=== PATIENT | female | born 1950 | race Caucasian/White ===

== ENCOUNTER 2020-10-24 22:36 | Inpatient (IN) | payer MEDICARE, OTHER ==
[~2020-10-24] VITALS: Ht 165.1 cm; Wt 70.3 kg
[2020-10-24 23:06] LABS: BASOPHILS % (AUTO) 0.6 % (0.0-2.0); EOSINOPHILS # (AUTO) 0.1 K/uL (0.0-0.7); EOSINOPHILS % (AUTO) 1.6 % (0.0-7.0); HEMATOCRIT 38.6 % (31.2-41.9); HEMOGLOBIN 13.3 g/dL (10.9-14.3); LYMPHOCYTES # (AUTO) 1.3 K/uL (20.0-40.0); LYMPHOCYTES % (AUTO) 22.8 % (20.5-51.5); MEAN CORPUSCULAR HEMOGLOBIN 32.4 uug (24.7-32.8); MEAN CORPUSCULAR HGB CONC 35 g/dL (32.3-35.6); MONOCYTES # (AUTO) 0.4 K/uL (2.0-10.0); MONOCYTES % (AUTO) 6.2 % (0.0-11.0); NEUTROPHILS # (AUTO) 3.9 K/uL (1.8-8.9); NEUTROPHILS % (AUTO) 68.8 % (38.5-71.5); PLATELET COUNT (AUTO) 219 K/uL (179-408); WHITE BLOOD COUNT (AUTO) 5.7 K/uL (3.8-11.8)
[2020-10-24 23:21] LABS: ALANINE AMINOTRANSFERASE 27 U/L (14-59); ALKALINE PHOSPHATASE 79 U/L (50-136); ASPARTATE AMINOTRANSFERASE 12 U/L (15-37); BILIRUBIN,DIRECT 0.1 mg/dL (0.0-0.2); BILIRUBIN,TOTAL 0.3 mg/dL (0.2-1.0); CARBON DIOXIDE 28 mmol/L (21-32); CHLORIDE 103 mmol/L (98-107); CREATININE 0.8 mg/dL (0.6-1.3); GLUCOSE 135 mg/dL (74-106); POTASSIUM 3.8 mmol/L (3.5-5.1); TOTAL PROTEIN, SERUM 6.5 g/dL (6.4-8.2); UREA NITROGEN, BLOOD 13 mg/dL (7-18)
[2020-10-24 23:22] LABS: ACETAMINOPHEN < 2.0 ug/mL (10-30)
[2020-10-24 23:23] LABS: ETHANOL < 3 MG/DL (0-0)
[2020-10-24 23:27] LABS: THYROID STIMULATING HORMONE 1.482 mIU/mL (0.358-3.740)
[2020-10-25] MEDS ORDERED: DOXY100C2 PO (00:51)
[2020-10-25] MEDS ORDERED: MELA3TAB41 PO (00:51)
[2020-10-25] MEDS ORDERED: FERR325T28 PO (00:51)
[2020-10-25] MEDS ORDERED: BACL10TA PO (00:51)
[2020-10-25] MEDS ORDERED: ATOR80TA PO (00:51)
[2020-10-25] MEDS ORDERED: OXYC-128 PO (00:51)
[2020-10-25] MEDS ORDERED: ROBITUSSIN PO (00:51)
[2020-10-25] MEDS ORDERED: DIPH25CA83 PO (00:51)
[2020-10-25] MEDS ORDERED: GABA600T12 PO (00:51)
[2020-10-25] MEDS ORDERED: ACET-73 PO (00:51)
[2020-10-25] MEDS ORDERED: FAMO20TA8 PO (00:51)
[2020-10-25] MEDS ORDERED: DIAZ10TA4 PO (00:51)
[2020-10-25] MEDS ORDERED: ASPI81TA31 PO (00:51)
[2020-10-25] MEDS ORDERED: MIRA25TA PO (00:51)
[2020-10-25] MEDS ORDERED: LIDO30AD10 TD (00:51)
[2020-10-25] MEDS ORDERED: NALO4SPR NS (00:51)
[2020-10-25] MEDS ORDERED: NA P133E RC (00:51)
[2020-10-25] MEDS ORDERED: DEXT15DR6 OP (00:51)
[2020-10-25] MEDS ORDERED: TEMA30CA5 PO (00:51)
[2020-10-25] MEDS ORDERED: SUMA50TA PO (00:51)
[2020-10-25] MEDS ORDERED: BUPR8TAB4 SL (00:51)
[2020-10-25] MEDS ORDERED: MAGN400O6 PO (00:51)
[2020-10-25] MEDS ORDERED: MULT-619 PO (00:51)
[2020-10-25] MEDS ORDERED: ALBU8.5H8 IH (00:51)
[2020-10-25] MEDS ORDERED: BISA10SU61 RC (00:51)
[2020-10-25] MEDS ORDERED: BLOOD SUGAR DIAGNOSTIC 1 EACH STRIP VI ONE (02:30)
[2020-10-25] MEDS ORDERED: MAG HYDROX/AL HYDROX/SIMETH 30 ML LIQUID UDC PO PRN (02:30)
[2020-10-25] MEDS ORDERED: MAGNESIUM HYDROXIDE 30 ML LIQUID UDC PO PRN (02:30)
[2020-10-25 02:39] VITALS: BP 116/77
[2020-10-25 07:30] VITALS: BP 96/48
[2020-10-25] MEDS ORDERED: BISACODYL 10 MG SUPP.RECT RC PRN (15:00)
[2020-10-25] MEDS: DULOXETINE 30 MG CAPSULE.DR PO SCH (15:00)
[2020-10-25] MEDS ORDERED: OXYCODONE/APAP 5-325 MG TABLET PO PRN (15:00)
[2020-10-25] MEDS: DIVALPROEX SPRINKLE 125 MG CAP.SPRINK PO SCH ×2 (15:00→20:08)
[2020-10-25] MEDS ORDERED: ALBUTEROL SULFATE 1.25 MG/3 ML NEBU IH PRN (15:00)
[2020-10-25] MEDS ORDERED: POLYVINYL ALCOHOL OPHT DROPS 15 ML BOTTLE EACHEYE PRN (15:00)
[2020-10-25] MEDS ORDERED: SUMATRIPTAN SUCCINATE 50 MG TABLET PO PRN (15:00)
[2020-10-25] MEDS: ARIPIPRAZOLE 2 MG TABLET PO SCH (15:00)
[2020-10-25 16:43] VITALS: BP 99/55
[2020-10-25] MEDS ORDERED: BUPRENORPHINE HCL 8 MG TAB.SUBL SL SCH (17:00)
[2020-10-25] MEDS: FAMOTIDINE 20 MG TABLET PO SCH (17:00)
[2020-10-25] MEDS: BACLOFEN 10 MG TABLET PO SCH ×2 (17:00→20:08)
[2020-10-25] MEDS ORDERED: Medication Not On Formulary EA (Gabapentin 600 MG) PO SCH (17:00)
[2020-10-25] MEDS: ATORVASTATIN 40 MG TABLET PO SCH (20:08)
[2020-10-25] MEDS: GABAPENTIN 300 MG CAPSULE PO SCH (20:08)
[2020-10-26 07:30] VITALS: BP 101/49
[2020-10-26] MEDS: ASPIRIN 81 MG TAB.CHEW PO SCH (08:50)
[2020-10-26] MEDS: DULOXETINE 30 MG CAPSULE.DR PO SCH (08:50)
[2020-10-26] MEDS: DIVALPROEX SPRINKLE 125 MG CAP.SPRINK PO SCH ×2 (08:51→20:53)
[2020-10-26] MEDS: BACLOFEN 10 MG TABLET PO SCH ×4 (08:51→20:53)
[2020-10-26] MEDS: FAMOTIDINE 20 MG TABLET PO SCH ×2 (08:51→17:34)
[2020-10-26] MEDS: FERROUS SULFATE 325 MG TABEC PO SCH (08:51)
[2020-10-26] MEDS: MULTIVITAMINS,THERAPEUTIC TABLET PO SCH (08:51)
[2020-10-26] MEDS: GABAPENTIN 300 MG CAPSULE PO SCH ×4 (08:51→20:52)
[2020-10-26] MEDS: LIDOCAINE 5% PATCH TD SCH (08:51)
[2020-10-26] MEDS: ARIPIPRAZOLE 2 MG TABLET PO SCH (08:51)
[2020-10-26 16:00] VITALS: BP 110/58
[2020-10-26] MEDS: OXYCODONE/APAP 5-325 MG TABLET PO PRN (20:52)
[2020-10-26] MEDS: ATORVASTATIN 40 MG TABLET PO SCH (20:53)
[2020-10-26] MEDS: NYSTATIN CREAM 30 GM TUBE TOP SCH (20:54)
[2020-10-27 07:30] VITALS: BP 130/72
[2020-10-27] MEDS: LIDOCAINE 5% PATCH TD SCH (10:58)
[2020-10-27] MEDS: ASPIRIN 81 MG TAB.CHEW PO SCH (10:58)
[2020-10-27] MEDS: ARIPIPRAZOLE 2 MG TABLET PO SCH (10:58)
[2020-10-27] MEDS: DULOXETINE 30 MG CAPSULE.DR PO SCH (10:59)
[2020-10-27] MEDS: DIVALPROEX SPRINKLE 125 MG CAP.SPRINK PO SCH ×2 (10:59→20:16)
[2020-10-27] MEDS: BACLOFEN 10 MG TABLET PO SCH ×4 (11:00→20:16)
[2020-10-27] MEDS: FERROUS SULFATE 325 MG TABEC PO SCH (11:00)
[2020-10-27] MEDS: GABAPENTIN 300 MG CAPSULE PO SCH ×4 (11:01→20:16)
[2020-10-27] MEDS: MULTIVITAMINS,THERAPEUTIC TABLET PO SCH (11:01)
[2020-10-27] MEDS: FAMOTIDINE 20 MG TABLET PO SCH ×2 (11:01→16:27)
[2020-10-27] MEDS: NYSTATIN CREAM 30 GM TUBE TOP SCH ×2 (11:02→20:17)
[2020-10-27 16:00] VITALS: BP 105/58
[2020-10-27 20:06] VITALS: BP 122/68
[2020-10-27] MEDS: ATORVASTATIN 40 MG TABLET PO SCH (20:16)
[2020-10-28 07:30] VITALS: BP 121/58
[2020-10-28] MEDS: FERROUS SULFATE 325 MG TABEC PO SCH (08:42)
[2020-10-28] MEDS: GABAPENTIN 300 MG CAPSULE PO SCH ×4 (08:42→20:38)
[2020-10-28] MEDS: BACLOFEN 10 MG TABLET PO SCH ×4 (08:42→20:38)
[2020-10-28] MEDS: MULTIVITAMINS,THERAPEUTIC TABLET PO SCH (08:42)
[2020-10-28] MEDS: FAMOTIDINE 20 MG TABLET PO SCH ×2 (08:42→16:22)
[2020-10-28] MEDS: ARIPIPRAZOLE 2 MG TABLET PO SCH (08:42)
[2020-10-28] MEDS: DIVALPROEX SPRINKLE 125 MG CAP.SPRINK PO SCH ×2 (08:42→20:38)
[2020-10-28] MEDS: DULOXETINE 30 MG CAPSULE.DR PO SCH (08:42)
[2020-10-28] MEDS: ASPIRIN 81 MG TAB.CHEW PO SCH (08:42)
[2020-10-28] MEDS: NYSTATIN CREAM 30 GM TUBE TOP SCH ×2 (08:43→20:45)
[2020-10-28] MEDS: LIDOCAINE 5% PATCH TD SCH (08:43)
[2020-10-28 15:57] VITALS: BP 107/55
[2020-10-28] MEDS: BENZOCAINE/MENTH/CETYLPYRD LOZENGE MM PRN (16:35)
[2020-10-28] MEDS: ENSURE ENLIVE (VAN) 240 ML LIQUID PO SCH (17:25)
[2020-10-28 19:45] VITALS: BP 127/87
[2020-10-28] MEDS: ATORVASTATIN 40 MG TABLET PO SCH (20:38)
[2020-10-28] MEDS: TEMAZEPAM 7.5 MG CAPSULE PO PRN (22:00)
[2020-10-29 07:30] VITALS: BP 98/46
[2020-10-29] MEDS: ARIPIPRAZOLE 5 MG TABLET PO SCH (09:09)
[2020-10-29] MEDS: MULTIVITAMINS,THERAPEUTIC TABLET PO SCH (09:09)
[2020-10-29] MEDS: ASPIRIN 81 MG TAB.CHEW PO SCH (09:09)
[2020-10-29] MEDS: BACLOFEN 10 MG TABLET PO SCH ×4 (09:09→20:19)
[2020-10-29] MEDS: FERROUS SULFATE 325 MG TABEC PO SCH (09:10)
[2020-10-29] MEDS: FAMOTIDINE 20 MG TABLET PO SCH ×2 (09:10→17:02)
[2020-10-29] MEDS: DULOXETINE 30 MG CAPSULE.DR PO SCH (09:10)
[2020-10-29] MEDS: ENSURE ENLIVE (VAN) 240 ML LIQUID PO SCH ×2 (09:10→17:03)
[2020-10-29] MEDS: GABAPENTIN 300 MG CAPSULE PO SCH ×4 (09:10→20:18)
[2020-10-29] MEDS: DIVALPROEX SPRINKLE 125 MG CAP.SPRINK PO SCH ×2 (09:10→20:18)
[2020-10-29] MEDS: NYSTATIN CREAM 30 GM TUBE TOP SCH ×2 (09:11→20:19)
[2020-10-29] MEDS: LIDOCAINE 5% PATCH TD SCH (09:11)
[2020-10-29 15:29] VITALS: BP 92/44
[2020-10-29 20:12] VITALS: BP 126/56
[2020-10-29] MEDS: ATORVASTATIN 40 MG TABLET PO SCH (20:18)
[2020-10-29] MEDS: OXYCODONE/APAP 5-325 MG TABLET PO PRN (22:08)
[2020-10-29] MEDS: TEMAZEPAM 7.5 MG CAPSULE PO PRN (23:17)
[2020-10-30 07:30] VITALS: BP 120/76
[2020-10-30] MEDS: ARIPIPRAZOLE 5 MG TABLET PO SCH (08:59)
[2020-10-30] MEDS: FERROUS SULFATE 325 MG TABEC PO SCH (08:59)
[2020-10-30] MEDS: FAMOTIDINE 20 MG TABLET PO SCH ×2 (08:59→16:57)
[2020-10-30] MEDS: ASPIRIN 81 MG TAB.CHEW PO SCH (09:00)
[2020-10-30] MEDS: GABAPENTIN 300 MG CAPSULE PO SCH ×4 (09:00→20:54)
[2020-10-30] MEDS: DULOXETINE 30 MG CAPSULE.DR PO SCH (09:00)
[2020-10-30] MEDS: DIVALPROEX SPRINKLE 125 MG CAP.SPRINK PO SCH ×2 (09:00→20:54)
[2020-10-30] MEDS: BACLOFEN 10 MG TABLET PO SCH ×4 (09:00→20:54)
[2020-10-30] MEDS: MULTIVITAMINS,THERAPEUTIC TABLET PO SCH (09:00)
[2020-10-30] MEDS: LIDOCAINE 5% PATCH TD SCH (09:01)
[2020-10-30] MEDS: ENSURE ENLIVE (VAN) 240 ML LIQUID PO SCH ×2 (09:01→17:56)
[2020-10-30] MEDS: NYSTATIN CREAM 30 GM TUBE TOP SCH ×2 (09:03→20:54)
[2020-10-30] MEDS: CLONAZEPAM 0.5 MG TABLET PO PRN (12:17)
[2020-10-30 16:00] VITALS: BP 99/42
[2020-10-30] MEDS: OXYCODONE/APAP 5-325 MG TABLET PO PRN (18:03)
[2020-10-30 18:19] VITALS: BP 107/62
[2020-10-30 20:34] VITALS: BP 100/61
[2020-10-30] MEDS: BENZOCAINE/MENTH/CETYLPYRD LOZENGE MM PRN (20:53)
[2020-10-30] MEDS: ATORVASTATIN 40 MG TABLET PO SCH (20:54)
[2020-10-30] MEDS: TEMAZEPAM 7.5 MG CAPSULE PO PRN (22:42)
[2020-10-31 07:30] VITALS: BP 121/50
[2020-10-31] MEDS: ASPIRIN 81 MG TAB.CHEW PO SCH (08:15)
[2020-10-31] MEDS: GABAPENTIN 300 MG CAPSULE PO SCH ×4 (08:15→20:52)
[2020-10-31] MEDS: ARIPIPRAZOLE 5 MG TABLET PO SCH (08:15)
[2020-10-31] MEDS: FAMOTIDINE 20 MG TABLET PO SCH ×2 (08:15→17:19)
[2020-10-31] MEDS: MULTIVITAMINS,THERAPEUTIC TABLET PO SCH (08:15)
[2020-10-31] MEDS: DIVALPROEX SPRINKLE 125 MG CAP.SPRINK PO SCH ×2 (08:15→20:52)
[2020-10-31] MEDS: FERROUS SULFATE 325 MG TABEC PO SCH (08:15)
[2020-10-31] MEDS: BACLOFEN 10 MG TABLET PO SCH ×4 (08:15→20:52)
[2020-10-31] MEDS: DULOXETINE 30 MG CAPSULE.DR PO SCH (08:15)
[2020-10-31] MEDS: NYSTATIN CREAM 30 GM TUBE TOP SCH ×2 (08:16→20:53)
[2020-10-31] MEDS: LIDOCAINE 5% PATCH TD SCH (08:16)
[2020-10-31] MEDS: ENSURE ENLIVE (VAN) 240 ML LIQUID PO SCH ×2 (08:17→17:20)
[2020-10-31 16:33] VITALS: BP 118/53
[2020-10-31 20:14] VITALS: BP 114/51
[2020-10-31] MEDS: ATORVASTATIN 40 MG TABLET PO SCH (20:52)
[2020-10-31] MEDS: OXYCODONE/APAP 5-325 MG TABLET PO PRN (21:01)
[2020-10-31] MEDS: TEMAZEPAM 7.5 MG CAPSULE PO PRN (23:11)
[2020-11-01 07:30] VITALS: BP 105/52
[2020-11-01] MEDS: ASPIRIN 81 MG TAB.CHEW PO SCH (08:54)
[2020-11-01] MEDS: MULTIVITAMINS,THERAPEUTIC TABLET PO SCH (08:54)
[2020-11-01] MEDS: FERROUS SULFATE 325 MG TABEC PO SCH (08:54)
[2020-11-01] MEDS: FAMOTIDINE 20 MG TABLET PO SCH ×2 (08:54→16:20)
[2020-11-01] MEDS: GABAPENTIN 300 MG CAPSULE PO SCH ×4 (08:54→20:28)
[2020-11-01] MEDS: DIVALPROEX SPRINKLE 125 MG CAP.SPRINK PO SCH ×2 (08:55→20:28)
[2020-11-01] MEDS: BACLOFEN 10 MG TABLET PO SCH ×4 (08:55→20:28)
[2020-11-01] MEDS: DULOXETINE 30 MG CAPSULE.DR PO SCH (08:55)
[2020-11-01] MEDS: ARIPIPRAZOLE 5 MG TABLET PO SCH ×2 (08:55→16:20)
[2020-11-01] MEDS: LIDOCAINE 5% PATCH TD SCH (08:56)
[2020-11-01] MEDS: ENSURE ENLIVE (VAN) 240 ML LIQUID PO SCH ×2 (08:56→16:21)
[2020-11-01] MEDS: NYSTATIN CREAM 30 GM TUBE TOP SCH ×2 (08:56→20:56)
[2020-11-01] MEDS: ACETAMINOPHEN 325 MG TABLET PO PRN (11:47)
[2020-11-01] MEDS: CLONAZEPAM 0.5 MG TABLET PO SCH ×2 (14:35→16:20)
[2020-11-01 16:19] VITALS: BP 116/55
[2020-11-01 20:22] VITALS: BP 133/79
[2020-11-01] MEDS: ATORVASTATIN 40 MG TABLET PO SCH (20:28)
[2020-11-01] MEDS: OXYCODONE/APAP 5-325 MG TABLET PO PRN (20:56)
[2020-11-01] MEDS: CLONAZEPAM 0.5 MG TABLET PO PRN (23:21)
[2020-11-02] MEDS: TEMAZEPAM 7.5 MG CAPSULE PO PRN (01:40)
[2020-11-02 07:30] VITALS: BP 97/52
[2020-11-02] MEDS: OXYCODONE/APAP 5-325 MG TABLET PO PRN ×2 (08:27→21:24)
[2020-11-02] MEDS: FAMOTIDINE 20 MG TABLET PO SCH ×2 (08:38→16:27)
[2020-11-02] MEDS: GABAPENTIN 300 MG CAPSULE PO SCH ×4 (08:38→20:37)
[2020-11-02] MEDS: ASPIRIN 81 MG TAB.CHEW PO SCH (08:38)
[2020-11-02] MEDS: BACLOFEN 10 MG TABLET PO SCH ×4 (08:39→20:37)
[2020-11-02] MEDS: DIVALPROEX SPRINKLE 125 MG CAP.SPRINK PO SCH ×2 (08:39→20:37)
[2020-11-02] MEDS: MULTIVITAMINS,THERAPEUTIC TABLET PO SCH (08:39)
[2020-11-02] MEDS: FERROUS SULFATE 325 MG TABEC PO SCH (08:39)
[2020-11-02] MEDS: DULOXETINE 30 MG CAPSULE.DR PO SCH (08:39)
[2020-11-02] MEDS: CLONAZEPAM 0.5 MG TABLET PO SCH ×3 (08:39→16:27)
[2020-11-02] MEDS: ENSURE ENLIVE (VAN) 240 ML LIQUID PO SCH ×2 (08:40→17:00)
[2020-11-02] MEDS: LIDOCAINE 5% PATCH TD SCH (08:40)
[2020-11-02] MEDS: ARIPIPRAZOLE 5 MG TABLET PO SCH ×2 (08:40→16:27)
[2020-11-02] MEDS: NYSTATIN CREAM 30 GM TUBE TOP SCH ×2 (08:41→20:38)
[2020-11-02 15:38] VITALS: BP 93/50
[2020-11-02 20:32] VITALS: BP 102/72
[2020-11-02] MEDS: ATORVASTATIN 40 MG TABLET PO SCH (20:37)
[2020-11-03] MEDS: TEMAZEPAM 7.5 MG CAPSULE PO PRN (01:59)
[2020-11-03 08:00] VITALS: BP 114/51
[2020-11-03] MEDS: DIVALPROEX SPRINKLE 125 MG CAP.SPRINK PO SCH ×2 (09:00→20:46)
[2020-11-03] MEDS: GABAPENTIN 300 MG CAPSULE PO SCH ×4 (09:00→20:48)
[2020-11-03] MEDS: CLONAZEPAM 0.5 MG TABLET PO SCH ×3 (09:00→16:34)
[2020-11-03] MEDS: FERROUS SULFATE 325 MG TABEC PO SCH (09:00)
[2020-11-03] MEDS: ENSURE ENLIVE (VAN) 240 ML LIQUID PO SCH ×2 (09:00→16:35)
[2020-11-03] MEDS: ASPIRIN 81 MG TAB.CHEW PO SCH (09:00)
[2020-11-03] MEDS: MULTIVITAMINS,THERAPEUTIC TABLET PO SCH (09:01)
[2020-11-03] MEDS: BACLOFEN 10 MG TABLET PO SCH ×4 (09:01→20:48)
[2020-11-03] MEDS: NYSTATIN CREAM 30 GM TUBE TOP SCH ×2 (09:01→20:49)
[2020-11-03] MEDS: ARIPIPRAZOLE 5 MG TABLET PO SCH ×2 (09:01→16:34)
[2020-11-03] MEDS: FAMOTIDINE 20 MG TABLET PO SCH ×2 (09:01→16:35)
[2020-11-03] MEDS: LIDOCAINE 5% PATCH TD SCH (09:01)
[2020-11-03] MEDS: DULOXETINE 30 MG CAPSULE.DR PO SCH (09:01)
[2020-11-03] MEDS: OXYCODONE/APAP 5-325 MG TABLET PO PRN ×2 (09:01→20:48)
[2020-11-03] MEDS: ACETAMINOPHEN 325 MG TABLET PO PRN (14:05)
[2020-11-03 16:00] VITALS: BP 105/63
[2020-11-03 20:00] VITALS: BP 145/84
[2020-11-03] MEDS: ATORVASTATIN 40 MG TABLET PO SCH (20:46)
[2020-11-04] MEDS: BENZOCAINE/MENTH/CETYLPYRD LOZENGE MM PRN (00:13)
[2020-11-04] MEDS: TEMAZEPAM 7.5 MG CAPSULE PO PRN (00:13)
[2020-11-04] MEDS: MELATONIN 3 MG TABLET PO PRN (02:53)
[2020-11-04 07:30] VITALS: BP 131/65
[2020-11-04] MEDS: ENSURE ENLIVE (VAN) 240 ML LIQUID PO SCH ×2 (09:00→16:33)
[2020-11-04] MEDS: DULOXETINE 30 MG CAPSULE.DR PO SCH (09:06)
[2020-11-04] MEDS: DIVALPROEX SPRINKLE 125 MG CAP.SPRINK PO SCH (09:06)
[2020-11-04] MEDS: CLONAZEPAM 0.5 MG TABLET PO SCH ×3 (09:06→16:32)
[2020-11-04] MEDS: FERROUS SULFATE 325 MG TABEC PO SCH (09:06)
[2020-11-04] MEDS: FAMOTIDINE 20 MG TABLET PO SCH ×2 (09:06→16:32)
[2020-11-04] MEDS: LIDOCAINE 5% PATCH TD SCH (09:06)
[2020-11-04] MEDS: ARIPIPRAZOLE 5 MG TABLET PO SCH ×2 (09:06→16:32)
[2020-11-04] MEDS: MULTIVITAMINS,THERAPEUTIC TABLET PO SCH (09:06)
[2020-11-04] MEDS: BACLOFEN 10 MG TABLET PO SCH ×4 (09:06→20:41)
[2020-11-04] MEDS: GABAPENTIN 300 MG CAPSULE PO SCH ×4 (09:07→20:41)
[2020-11-04] MEDS: ASPIRIN 81 MG TAB.CHEW PO SCH (09:07)
[2020-11-04] MEDS: NYSTATIN CREAM 30 GM TUBE TOP SCH ×2 (09:07→20:41)
[2020-11-04 16:00] VITALS: BP 106/61
[2020-11-04 20:00] VITALS: BP 116/63
[2020-11-04] MEDS: DIVALPROEX 500 MG TABLET.DR PO SCH (20:41)
[2020-11-04] MEDS: ATORVASTATIN 40 MG TABLET PO SCH (20:41)
[2020-11-04] MEDS: ACETAMINOPHEN 325 MG TABLET PO PRN (21:58)
[2020-11-04] MEDS: CLONAZEPAM 0.5 MG TABLET PO PRN (23:35)
[2020-11-05] MEDS: MELATONIN 3 MG TABLET PO PRN (00:18)
[2020-11-05] MEDS: TEMAZEPAM 7.5 MG CAPSULE PO PRN (00:20)
[2020-11-05 07:30] VITALS: BP 97/56
[2020-11-05] MEDS: ENSURE ENLIVE (VAN) 240 ML LIQUID PO SCH ×2 (09:00→16:54)
[2020-11-05] MEDS: FERROUS SULFATE 325 MG TABEC PO SCH (09:01)
[2020-11-05] MEDS: GABAPENTIN 300 MG CAPSULE PO SCH ×4 (09:02→20:03)
[2020-11-05] MEDS: FAMOTIDINE 20 MG TABLET PO SCH ×2 (09:02→16:52)
[2020-11-05] MEDS: DIVALPROEX 500 MG TABLET.DR PO SCH ×2 (09:02→20:03)
[2020-11-05] MEDS: ASPIRIN 81 MG TAB.CHEW PO SCH (09:02)
[2020-11-05] MEDS: MULTIVITAMINS,THERAPEUTIC TABLET PO SCH (09:02)
[2020-11-05] MEDS: DULOXETINE 30 MG CAPSULE.DR PO SCH (09:02)
[2020-11-05] MEDS: BACLOFEN 10 MG TABLET PO SCH ×4 (09:02→20:02)
[2020-11-05] MEDS: NYSTATIN CREAM 30 GM TUBE TOP SCH ×2 (09:02→20:03)
[2020-11-05] MEDS: LIDOCAINE 5% PATCH TD SCH (09:02)
[2020-11-05] MEDS: CLONAZEPAM 0.5 MG TABLET PO SCH ×3 (09:02→16:52)
[2020-11-05] MEDS: ARIPIPRAZOLE 5 MG TABLET PO SCH ×2 (09:02→16:51)
[2020-11-05 16:00] VITALS: BP 120/66
[2020-11-05 20:00] VITALS: BP 104/59
[2020-11-05] MEDS: BENZOCAINE/MENTH/CETYLPYRD LOZENGE MM PRN (20:02)
[2020-11-05] MEDS: ATORVASTATIN 40 MG TABLET PO SCH (20:03)
[2020-11-06] MEDS: TEMAZEPAM 7.5 MG CAPSULE PO PRN (01:15)
[2020-11-06 07:30] VITALS: BP 134/64
[2020-11-06] MEDS: DIVALPROEX 500 MG TABLET.DR PO SCH ×2 (08:23→20:53)
[2020-11-06] MEDS: CLONAZEPAM 0.5 MG TABLET PO SCH ×3 (08:23→17:32)
[2020-11-06] MEDS: BACLOFEN 10 MG TABLET PO SCH ×4 (08:23→20:53)
[2020-11-06] MEDS: ASPIRIN 81 MG TAB.CHEW PO SCH (08:23)
[2020-11-06] MEDS: ARIPIPRAZOLE 5 MG TABLET PO SCH ×2 (08:23→17:31)
[2020-11-06] MEDS: MULTIVITAMINS,THERAPEUTIC TABLET PO SCH (08:36)
[2020-11-06] MEDS: GABAPENTIN 300 MG CAPSULE PO SCH ×4 (08:36→20:54)
[2020-11-06] MEDS: FERROUS SULFATE 325 MG TABEC PO SCH (08:36)
[2020-11-06] MEDS: DULOXETINE 30 MG CAPSULE.DR PO SCH (08:36)
[2020-11-06] MEDS: LIDOCAINE 5% PATCH TD SCH (08:36)
[2020-11-06] MEDS: FAMOTIDINE 20 MG TABLET PO SCH ×2 (08:36→17:32)
[2020-11-06] MEDS: ENSURE ENLIVE (VAN) 240 ML LIQUID PO SCH ×3 (08:37→17:33)
[2020-11-06] MEDS: NYSTATIN CREAM 30 GM TUBE TOP SCH ×2 (08:38→20:58)
[2020-11-06] MEDS: ACETAMINOPHEN 325 MG TABLET PO PRN (12:48)
[2020-11-06 13:00] VITALS: BP 111/64
[2020-11-06 16:32] VITALS: BP 111/64
[2020-11-06 20:35] VITALS: BP 112/62
[2020-11-06] MEDS: OXYCODONE/APAP 5-325 MG TABLET PO PRN (20:54)
[2020-11-06] MEDS: ATORVASTATIN 40 MG TABLET PO SCH (20:54)
[2020-11-07] MEDS: TEMAZEPAM 7.5 MG CAPSULE PO PRN (00:18)
[2020-11-07] MEDS: BENZOCAINE/MENTH/CETYLPYRD LOZENGE MM PRN (03:14)
[2020-11-07] MEDS: CLONAZEPAM 0.5 MG TABLET PO PRN (03:14)
[2020-11-07 07:30] VITALS: BP 132/73
[2020-11-07] MEDS: LIDOCAINE 5% PATCH TD SCH (09:00)
[2020-11-07] MEDS: ENSURE ENLIVE (VAN) 240 ML LIQUID PO SCH ×2 (09:00→13:00)
[2020-11-07] MEDS: NYSTATIN CREAM 30 GM TUBE TOP SCH (09:00)
[2020-11-07] MEDS: FAMOTIDINE 20 MG TABLET PO SCH (09:52)
[2020-11-07] MEDS: DULOXETINE 30 MG CAPSULE.DR PO SCH (09:52)
[2020-11-07] MEDS: ARIPIPRAZOLE 5 MG TABLET PO SCH (09:52)
[2020-11-07] MEDS: CLONAZEPAM 0.5 MG TABLET PO SCH ×2 (09:52→13:01)
[2020-11-07] MEDS: FERROUS SULFATE 325 MG TABEC PO SCH (09:52)
[2020-11-07] MEDS: ASPIRIN 81 MG TAB.CHEW PO SCH (09:52)
[2020-11-07] MEDS: BACLOFEN 10 MG TABLET PO SCH ×2 (09:53→13:01)
[2020-11-07] MEDS: GABAPENTIN 300 MG CAPSULE PO SCH ×2 (09:53→13:01)
[2020-11-07] MEDS: DIVALPROEX 500 MG TABLET.DR PO SCH (09:53)
[2020-11-07] MEDS: MULTIVITAMINS,THERAPEUTIC TABLET PO SCH (09:53)
== END 2020-11-07 14:30 | DRG 885 ==
LOC: ER 22:43 → GPS 10-25 01:51
PROVIDERS: ADMIT Psychiatry & Neurology Psychiatry; ATTEND Nurse Practitioner Family
DX: F39 Unspecified mood [affective] disorder (principal); I69.351 Hemiplegia and hemiparesis following cerebral infarction affecting right dominant side; E44.1 Mild protein-calorie malnutrition; F29 Unspecified psychosis not due to a substance or known physiological condition; F17.210 Nicotine dependence, cigarettes, uncomplicated; E78.5 Hyperlipidemia, unspecified; F41.9 Anxiety disorder, unspecified; G47.00 Insomnia, unspecified; Z20.822 Contact with and (suspected) exposure to COVID-19; Z73.6 Limitation of activities due to disability; E88.09 Other disorders of plasma-protein metabolism, not elsewhere classified; I69.320 Aphasia following cerebral infarction; Z68.25 Body mass index [BMI] 25.0-25.9, adult; S76.011A Strain of muscle, fascia and tendon of right hip, initial encounter; F25.9 Schizoaffective disorder, unspecified; X58.XXXA Exposure to other specified factors, initial encounter; Y93.9 Activity, unspecified; Y92.129 Unspecified place in nursing home as the place of occurrence of the external cause
CPT/HCPCS: 36415; 73502; 84443; 85025; 93005; G0480